=== PATIENT | female | born 1985 | race African-American/Black ===

== ENCOUNTER 2025-03-30 08:06 | Emergency (ER) | payer MEDICAID ==
[~2025-03-30] VITALS: Ht 152.4 cm; Wt 59.1 kg
[2025-03-30 08:17] VITALS: TEMP 98
[2025-03-30 08:27] LABS: COVID AG,FIA SOURCE NASAL SWAB
[2025-03-30 08:44] LABS: APPEARANCE,URINE CLEAR (CLEAR); GLUCOSE, URINE (UA) NEGATIVE (NEGATIVE); LEUKOCYTE ESTERASE ,URINE MODERATE (NEGATIVE); NITRATE,URINE NEGATIVE (NEGATIVE); OCCULT BLOOD,URINE TRACE (NEGATIVE); SPECIFIC GRAVITIY, URINE 1.013 (1.003-1.030)
[2025-03-30 09:22] LABS: INFLUENZA TYPE A NEGATIVE FOR TYPE A (NEGATIVE); INFLUENZA TYPE B NEGATIVE FOR TYPE B (NEGATIVE); SARS-COV2 (COVID) ANTIGEN,FIA Negative (Negative)
[2025-03-30] MEDS: IPRATROPIUM BROMIDE 0.5 MG/2.5 ML NEB SOLUTION NEB ONE (11:25)
[2025-03-30] MEDS: ALBUTEROL SULFATE 2.5 MG/0.5 ML NEB SOLUTION NEB ONE (11:25)
[2025-03-30 11:26] VITALS: PULSE 62; RESP 18; O2SAT 99
[2025-03-30 11:38] VITALS: PULSE 63; RESP 18; O2SAT 100
[2025-03-30] MEDS ORDERED: CEPH-558 PO (11:55)
[2025-03-30 12:00] VITALS: BP 118/79; PULSE 65; RESP 16; O2SAT 99
[2025-03-30] MEDS: CefTRIAXone SODIUM 1 GM/VIAL IM ONE (12:14)
[2025-03-30] MEDS: AZITHROMYCIN 500 MG TABLET PO ONE (12:14)
[2025-03-30] MEDS: LIDOCAINE/PF 1% 2 ML VIAL IM ONE (12:14)
== END 2025-03-30 12:17 | disposition home or self-care (01) ==
LOC: EMS 08:15
DX: J45.909 Unspecified asthma, uncomplicated (principal); N39.0 Urinary tract infection, site not specified; F17.210 Nicotine dependence, cigarettes, uncomplicated; R05.9 Cough, unspecified; R06.02 Shortness of breath; Z20.822 Contact with and (suspected) exposure to COVID-19
CPT/HCPCS: 99283; 87426; 81001; 84703; 87086; 87804; 94640; 96372; J0456; J0696; J3490